=== PATIENT | female | born 2000 | race Caucasian/White ===

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

== ENCOUNTER 2019-07-29 18:44 | Emergency (ER) | payer BC, OTHER ==
[2019-07-29 19:08] VITALS: BP 153/86
--- NOTE | 2019-07-29 19:44 | UC ---
Knee Pain HPI - HPI Summary HPI Summary: Tripped and fell at work yesterday 1345; fell directly on LEFT knee on conrete floor. Painful to weight-bear. Took excedrin w/ no pain relief last night. - History of Current Complaint Chief Complaint: UCLowerExtremity Stated Complaint: LT KNEE COMPLAINT Time Seen by Provider: 07/29/19 19:41 Hx Obtained From: Patient Hx Last Menstrual Period: 06/30/19 ?: No Onset/Duration: Sudden Onset, Lasting Days Severity Initially: Moderate Severity Currently: Moderate Pain Intensity: 6 Character: Throbbing, Stiffness Aggravating Factor(s): Movement, Prolonged Standing, Stairs Able to Bear Weight: Yes - but painful - Allergies/Home Medications Allergies/Adverse Reactions: Allergies Allergy/AdvReac Type Severity Reaction Status Date / Time No Known Allergies Allergy Verified 07/29/19 19:02 Home Medications: Home Medications Amitriptyline TAB* [Elavil TAB*] 1 tab QPM 07/29/19 [History Confirmed 07/29/19] Metoprolol Tartrate TAB* [Lopressor TAB*] 1 tab QPM 07/29/19 [History Confirmed 07/29/19] QUEtiapine TAB* [Seroquel 25 MG TAB*] 25 mg PO BEDTIME 07/29/19 [History Confirmed 07/29/19] PMH/Surg Hx/FS Hx/Imm Hx Previously Healthy: Yes - Surgical History Surgical History: None - Family History Known Family History: Negative: Hypertension - Social History Alcohol Use: None Substance Use Type: None Smoking Status (MU): Never Smoked Tobacco Review of Systems All Other Systems Reviewed And Are Negative: Yes Musculoskeletal: Positive: Arthralgia, Decreased ROM, Edema, Myalgia Psychological: Positive: Negative Is Patient Immunocompromised?: No Physical Exam Vital Signs: Initial Vital Signs Temp 98.3 F 07/29/19 19:04 Pulse 81 07/29/19 19:04 Resp 20 07/29/19 19:04 BP 153/86 07/29/19 19:04 Pulse Ox 100 07/29/19 19:04 Knee Pain Course/Dx - Course Course Of Treatment: hx obtained, exam performed, meds reviewed, xray obtained. - Differential Dx/Diagnosis Differential Diagnosis/HQI/PQRI: Contusion, Dislocation, Fracture (Closed), Sprain, Strain Provider Diagnosis: Contusion, knee Discharge ED - Sign-Out/Discharge Documenting (check all that apply): Patient Departure All imaging exams completed and their final reports reviewed: No Studies - Discharge Plan Condition: Stable Disposition: HOME Patient Education Materials: Contusion in Adults (ED) Forms: *Work Release Referrals: Beryl Viveros PA [Primary Care Provider] - Additional Instructions: 1. ibuprofen or tylenol for pain and fever. 2. - Billing Disposition and Condition Condition: STABLE Disposition: Home
== END 2019-07-29 20:01 | disposition home or self-care (01) ==
LOC: UCCORT 18:44
DX: S80.02XA Contusion of left knee, initial encounter (principal); W01.0XXA Fall on same level from slipping, tripping and stumbling without subsequent striking against object, initial encounter; Y92.9 Unspecified place or not applicable
CPT/HCPCS: 99212; G0463